=== PATIENT | female | born 1990 | race Caucasian/White ===

== ENCOUNTER 2016-08-03 11:51 | Emergency (ER) | payer BC ==
[2016-08-03 15:20] VITALS: BP 127/67
== END 2016-08-03 16:04 | disposition left against medical advice (07) ==
LOC: ED 11:51
DX: R10.9 Unspecified abdominal pain (principal); Z53.21 Procedure and treatment not carried out due to patient leaving prior to being seen by health care provider
CPT/HCPCS: 99281

== ENCOUNTER 2016-08-03 17:06 | Emergency (ER) | payer BC ==
[2016-08-03 17:43] VITALS: BP 120/79
--- NOTE | 2016-08-03 18:25 | UC ---
Abdominal Pain Female HPI - HPI Summary HPI Summary: Dull periumbilical upper abd discomfort since about 4pm yesterday. Ate a chicken breast sub for lunch yesterday, ate salmon last night, pain did not get better or worse with eating. Ate breakfast at 5am and experienced some nausea s vomiting. Last BM this morning normal/no blood. Denies fever or chills. No radiation of pain. - History of Current Complaint Chief Complaint: UCAbdominalPain Stated Complaint: ABDOMINAL PAIN Time Seen by Provider: 08/03/16 17:46 Hx Obtained From: Patient Hx Last Menstrual Period: 07/26/16 ?: No Onset/Duration: Gradual Onset, Lasting Hours Timing: Constant Severity Initially: Moderate Severity Currently: Mild Location: Epigastric Radiates: No Character: Aching, Dull Aggravating Factor(s): Nothing Alleviating Factor(s): Nothing Associated Signs and Symptoms: Negative: Fever, Cough, Urinary Symptoms, Decreased Appetite, Vaginal Discharge, Vomiting, Diarrhea Allergies/Adverse Reactions: Allergies Allergy/AdvReac Type Severity Reaction Status Date / Time No Known Allergies Allergy Verified 11/14/13 10:39 PMH/Surg Hx/FS Hx/Imm Hx Previously Healthy: Yes Endocrine History Of: Denies: Diabetes, Thyroid Disease Cardiovascular History Of: Denies: Cardiac Disorders, Hypertension Respiratory History Of: Denies: COPD, Asthma GI/ History Of: Denies: Ulcer - Surgical History Surgical History: None - Family History Known Family History: Positive: Diabetes - in grandparents, Other - noncontibutory - Social History Occupation: Employed Full-time Alcohol Use: Rare Substance Use Type: None Smoking Status (MU): Never Smoked Tobacco Review of Systems Constitutional: Negative Skin: Negative Eyes: Negative ENT: Negative Respiratory: Negative Cardiovascular: Negative Gastrointestinal: Abdominal Pain Genitourinary: Negative Motor: Negative Neurovascular: Negative Musculoskeletal: Negative Neurological: Negative Psychological: Negative All Other Systems Reviewed And Are Negative: Yes Physical Exam Triage Information Reviewed: Yes Appearance: Well-Appearing, No Pain Distress, Well-Nourished Vital Signs: Initial Vital Signs Temp 97.6 F 08/03/16 17:40 Pulse 78 08/03/16 17:40 Resp 18 08/03/16 17:40 BP 120/79 08/03/16 17:40 Pulse Ox 100 08/03/16 17:40 Vital Signs Reviewed: Yes Eye Exam: Normal Eyes: Positive: Conjunctiva Clear ENT Exam: Normal ENT: Positive: Normal ENT inspection, Hearing grossly normal, Pharynx normal, TMs normal Dental Exam: Normal Neck exam: Normal Neck: Positive: Supple Respiratory Exam: Normal Respiratory: Positive: Chest non-tender, Lungs clear, Normal breath sounds, No respiratory distress, No accessory muscle use Cardiovascular Exam: Normal Cardiovascular: Positive: RRR, No Murmur Abdomen Description: Positive: Nontender, No Organomegaly, Soft. Negative: CVA Tenderness (R), Distended, Guarding, McBurney's Point Tenderness, Peritoneal Signs, Pulsatile Mass Bowel Sounds: Positive: Present Musculoskeletal Exam: Normal Neurological Exam: Normal Psychological Exam: Normal Skin Exam: Normal Abd Pain Female Course/Dx - Differential Dx/Diagnosis Provider Diagnoses: abdominal pain Discharge - Discharge Plan Condition: Stable Disposition: HOME Prescriptions: Omeprazole CAP* [Prilosec CAP* 20 MG] 20 mg PO BID #6 cap. Patient Education Materials: Abdominal Pain (ED) Referrals: Debbie Rudolph MD [Primary Care Provider] - Additional Instructions: As we discussed, there are no indications of dangerous causes of your abdominal pain. You do not show signs of appendicitis or gall bladder disease, and your vital signs are normal. If you develop worsening pain, if pain becomes concentrated in one spot, if you have prolonged vomiting, or if you see blood in your vomit or stool, please get seen right away in the emergency department. If you continue to have persistent and mild symptoms, please see Dr. Rudolph.
== END 2016-08-03 18:20 | disposition home or self-care (01) ==
LOC: UCEAST 17:06
DX: R10.33 Periumbilical pain (principal); R11.0 Nausea
CPT/HCPCS: 99212; G0463

== ENCOUNTER 2017-04-15 10:41 | Emergency (ER) | payer BC ==
[2017-04-15 11:23] VITALS: BP 107/56
--- NOTE | 2017-04-15 12:27 | UC ---
Respiratory Complaint HPI - HPI Summary HPI Summary: Roommate-who she rarely sees was dx with presumptive whooping cough---she has had no fever or runny nose occasional cough with out post tussive emesis---she is wishing to be checked for whooping cough but does not want treatment as she has no specific sx of such --put is up to date with immunizations - History of Current Complaint Chief Complaint: UCRespiratory Stated Complaint: NEEDS TESTING FOR WHOOPING COUGH Time Seen by Provider: 04/15/17 11:52 Hx Obtained From: Patient Hx Last Menstrual Period: 1 week ago ?: No Onset/Duration: Gradual Onset, Lasting Weeks - 2 Timing: Constant Severity Initially: Mild Severity Currently: Mild Pain Intensity: 0 Character: Cough: Nonproductive Aggravating Factors: Nothing Alleviating Factors: Nothing Associated Signs And Symptoms: Positive: Nasal Congestion - minimal - Allergies/Home Medications Allergies/Adverse Reactions: Allergies Allergy/AdvReac Type Severity Reaction Status Date / Time No Known Allergies Allergy Verified 04/15/17 11:23 Home Medications: Home Medications Norgestimate-Ethinyl Estradiol [Tri Femynor 0.18/0.215/0.25 mg-35 Mcg] 1 tab PO DAILY 04/15/17 [History Confirmed 04/15/17] PMH/Surg Hx/FS Hx/Imm Hx Previously Healthy: Yes - Surgical History Surgical History: None - Family History Known Family History: Positive: Diabetes - in grandparents, Other - noncontibutory - Social History Occupation: Employed Full-time Lives: Dormitory/Roommates Alcohol Use: Rare Substance Use Type: None Smoking Status (MU): Never Smoked Tobacco Review of Systems Constitutional: Negative Skin: Negative Eyes: Negative ENT: Nasal Discharge - miniml Respiratory: Cough - rare tickle Cardiovascular: Negative Gastrointestinal: Negative Genitourinary: Negative Motor: Negative Neurovascular: Negative Musculoskeletal: Negative Neurological: Negative Psychological: Negative Is Patient Immunocompromised?: No All Other Systems Reviewed And Are Negative: Yes Physical Exam Triage Information Reviewed: Yes Appearance: Well-Appearing, No Pain Distress, Well-Nourished Vital Signs: Initial Vital Signs Temp 98.7 F 04/15/17 11:17 Pulse 71 04/15/17 11:17 Resp 18 04/15/17 11:17 BP 107/56 04/15/17 11:17 Pulse Ox 100 04/15/17 11:17 Vital Signs Reviewed: Yes Eye Exam: Normal Eyes: Positive: Conjunctiva Clear ENT Exam: Normal ENT: Positive: Normal ENT inspection, Hearing grossly normal, Pharynx normal, TMs normal. Negative: Nasal congestion, Nasal drainage, Tonsillar swelling, Tonsillar exudate, Trismus, Muffled/hoarse voice Dental Exam: Normal Neck exam: Normal Neck: Positive: Supple, Nontender, No Lymphadenopathy Respiratory Exam: Normal Respiratory: Positive: Chest non-tender, Lungs clear, Normal breath sounds, No respiratory distress, No accessory muscle use Cardiovascular Exam: Normal Cardiovascular: Positive: RRR, No Murmur, Pulses Normal, Brisk Capillary Refill Musculoskeletal Exam: Normal Musculoskeletal: Positive: Strength Intact, ROM Intact, No Edema Neurological Exam: Normal Neurological: Positive: Alert, Muscle Tone Normal Psychological Exam: Normal Psychological: Positive: Normal Response To Family, Age Appropriate Behavior Skin Exam: Normal UC Diagnostic Evaluation - Laboratory O2 Sat by Pulse Oximetry: 100 Respiratory Course/Dx - Course Course Of Treatment: whooping cough nasal swab, increae fluids, follow with pcp prn - Differential Dx/Diagnosis Differential Diagnosis/HQI/PQRI: Asthma, Lower Resp Infection, Sinusitis, Other - whooping cough Provider Diagnoses: URI, possible pertussis exposure Discharge - Discharge Plan Condition: Stable Disposition: HOME Patient Education Materials: Pertussis (ED), Cold Symptoms (ED), Acute Cough ( ED) Referrals: Debbie Rudolph MD [Primary Care Provider] - If Needed
== END 2017-04-15 12:40 | disposition home or self-care (01) ==
LOC: UCEAST 10:41
DX: J06.9 Acute upper respiratory infection, unspecified (principal)
CPT/HCPCS: 87798; 99211; G0463

== ENCOUNTER 2017-10-03 15:03 | Emergency (ER) | payer BC ==
[2017-10-03 17:26] LABS: Hematocrit 43 % (35-47); Hemoglobin 14.3 g/dl (12.0-16.0); Mean Corpuscular HGB Conc 33 g/dl (31-36); Mean Corpuscular Hemoglobin 31 pg (27-31); Mean Corpuscular Volume 94 fL (80-97); Mean Platelet Volume 8.8 um3 (7.4-10.4); Platelet Count 210 10^3/ul (150-450); Red Blood Count 4.61 10^6/ul (4.0-5.4); Red Cell Distribution Width 14 % (10.5-15); White Blood Count 4.4 10^3/ul (3.5-10.8)
[2017-10-03 17:43] LABS: EGFR Non-African American 100.4 (>60)
[2017-10-03 18:34] LABS: ABS Basophils 0 10^3/ul (0-0.2); ABS Eosinophils 0 10^3/ul (0-0.6); ABS Monocytes 0.6 10^3/ul (0-0.8); ABS Neutrophils 1.8 10^3/ul (1.5-7.7); ABS Nucleated RBC 0 10^3/ul; Eosinophil % 0.3 % (0-6); Lymphocyte % 45.1 % (25-47); Nucleated Red Blood Cells % 0.1
--- NOTE | 2017-10-03 18:35 | ED ---
Complex/Multi-Sys Presentation - HPI Summary HPI Summary: Patient here with multiple symptoms started 2 days ago. She is primarily here for a left-sided neck swelling which is expanded since last night however she denies difficulty with breathing or swallowing and this area is not painful. Other symptoms include intermittent headache, sore throat, abdominal cramping without nausea vomiting or diarrhea and feeling run down in general. She denies neck stiffness, chest pain, dental pain/swelling/redness/drainage/ infection, rash, numbness, tingling or weakness. No h/o strep or mono and no recent sick contacts. She believes she is up-to-date with her immunizations. States she is overall healthy person. - History Of Current Complaint Chief Complaint: EDGeneral Time Seen by Provider: 10/03/17 15:51 Hx Obtained From: Patient - Allergies/Home Medications Allergies/Adverse Reactions: Allergies Allergy/AdvReac Type Severity Reaction Status Date / Time No Known Allergies Allergy Verified 10/03/17 15:43 Home Medications: Home Medications Norgestimate-Ethinyl Estradiol [Tri-Sprintec 0.18/0.215/0.25 mg-35 Mcg] 1 tab PO DAILY 10/03/17 [History Confirmed 10/03/17] PMH/Surg Hx/FS Hx/Imm Hx Previously Healthy: Yes Endocrine/Hematology History: Denies: Hx Anticoagulant Therapy, Hx Blood Disorders, Hx Diabetes, Hx Thyroid Disease, Hx Unexplained Bleeding, Autoimmune Disease Cardiovascular History: Denies: Hx Hypertension Respiratory History: Denies: Hx Asthma, Hx Chronic Obstructive Pulmonary Disease (COPD) GI History: Denies: Hx Ulcer - Immunization History Immunizations Up to Date: Yes Infectious Disease History: No Infectious Disease History: Denies: Hx Clostridium Difficile, Hx Hepatitis, Hx Human Immunodeficiency Virus (HIV), Hx of Known/Suspected MRSA, Hx Shingles, Hx Tuberculosis, Hx Known/ Suspected VRE, Hx Known/Suspected VRSA, History Other Infectious Disease, Traveled Outside the [place] in Last 30 Days - Family History Known Family History: Positive: Diabetes - in grandparents - Social History Occupation: Employed Full-time - [employer] Lives: Dormitory/Roommates - female friend Alcohol Use: Rare Hx Substance Use: No Substance Use Type: Reports: None Hx Tobacco Use: No Smoking Status (MU): Never Smoked Tobacco Review of Systems Positive: Chills, Fatigue. Negative: Fever Eyes: Negative Positive: Sore Throat. Negative: Dental Pain, Ear Ache, Nasal Discharge Cardiovascular: Negative Respiratory: Negative - intermittent sneezing Gastrointestinal: Negative Genitourinary: Negative Positive: Arthralgia. Negative: Decreased ROM Skin: Negative Positive: Headache Psychological: Normal All Other Systems Reviewed And Are Negative: Yes Physical Exam Triage Information Reviewed: Yes Vital Signs On Initial Exam: Initial Vitals Temp Pulse Resp BP Pulse Ox 98.1 F 71 17 118/69 100 10/03/17 15:40 10/03/17 15:40 10/03/17 15:40 10/03/17 15:40 10/03/17 15:40 Vital Signs Reviewed: Yes Appearance: Positive: Well-Appearing, No Pain Distress, Well-Nourished Skin: Positive: Warm, Skin Color Reflects Adequate Perfusion, Dry - no rash Head/Face: Positive: Normal Head/Face Inspection - Sinuses NTTP Eyes: Positive: Normal, EOMI ENT: Positive: Normal ENT inspection, Hearing grossly normal, Pharynx normal, TMs normal, Uvula midline. Negative: Nasal congestion, Nasal drainage, Tonsillar swelling, Tonsillar exudate, Trismus, Muffled voice, Hoarse voice, Sinus tenderness Neck: Positive: Other: - single area of enlarged mobile and non-tender mass (~ 1.5cm in diameter) along Lt side of neck, deep in SCM - no overlying erythema, lesions, ecchymosis or crepitus - no fever to touch Respiratory/Lung Sounds: Positive: Clear to Auscultation, Breath Sounds Present. Negative: Rales, Rhonchi, Stridor, Tracheal Deviation, Wheezes Cardiovascular: Positive: Normal, RRR, S1, S2. Negative: Murmur, Rub Abdomen Description: Positive: Nontender, No Organomegaly, Soft Bowel Sounds: Positive: Present Musculoskeletal: Positive: Normal, Strength/ROM Intact Neurological: Positive: Normal, Sensory/Motor Intact, Alert, Oriented to Person Place, Time, CN Intact II-III Psychiatric: Positive: Normal Diagnostics - Vital Signs Vital Signs Temp Pulse Resp BP Pulse Ox 10/03/17 15:40 98.1 F 71 17 118/69 100 - Laboratory Lab Results: Lab Results 10/03/17 10/03/17 10/03/17 Range/Units 17:22 17:22 17:22 WBC 4.4 (3.5-10.8) 10^3/ul RBC 4.61 (4.0-5.4) 10^6/ul Hgb 14.3 (12.0-16.0) g/dl Hct 43 (35-47) % MCV 94 (80-97) fL MCH 31 (27-31) pg MCHC 33 (31-36) g/dl RDW 14 (10.5-15) % Plt Count 210 (150-450) 10^3/ul MPV 8.8 (7.4-10.4) um3 Neut % (Auto) Pending Lymph % (Auto) Pending Swift % (Auto) Pending Eos % (Auto) Pending Baso % (Auto) Pending Absolute Neuts (auto) Pending Absolute Lymphs (auto) Pending Absolute Monos (auto) Pending Absolute Eos (auto) Pending Absolute Basos (auto) Pending Absolute Nucleated RBC Pending Nucleated RBC % Pending Sodium 137 (133-145) mmol/L Potassium 4.8 (3.5-5.0) mmol/L Chloride 103 (101-111) mmol/L Carbon Dioxide 29 (22-32) mmol/L Anion Gap 5 (2-11) mmol/L BUN 9 (6-24) mg/dL Creatinine 0.70 (0.51-0.95) mg/dL Est GFR ( Amer) 129.1 (>60) Est GFR (Non-Af Amer) 100.4 (>60) BUN/Creatinine Ratio 12.9 (8-20) Glucose 106 H (70-100) mg/dL Lactic Acid 1.1 (0.5-2.0) mmol/L Calcium 9.1 (8.6-10.3) mg/dL Total Bilirubin 0.30 (0.2-1.0) mg/dL AST 26 (13-39) U/L ALT 38 (7-52) U/L Alkaline Phosphatase 41 (34-104) U/L C-Reactive Protein 3.84 (< 5.00) mg/L Total Protein 7.1 (6.4-8.9) g/dL Albumin 4.1 (3.2-5.2) g/dL Globulin 3.0 (2-4) g/dL Albumin/Globulin Ratio 1.4 (1-3) Beta HCG, Quant < 0.60 mIU/mL Monoscreen Positive A (Negative) Result Diagrams: 10/03/17 17:22 10/03/17 17:22 Lab Statement: Any lab studies that have been ordered have been reviewed, and results considered in the medical decision making process. Complex Multi-Symp Course/Dx Course Of Treatment: Pt's labs reveal mono. This correlates with her sx. Advised close f/u w/ PCP this week to ensure quick intervention if mass does continue to expand - may require further invstigation (ie. imaging, steroids, etc). If danger s/sx present, return to ED. Pt agrees w/ plan. - Diagnoses Provider Diagnoses: Mononucleosis, Unilateral mass of neck Discharge - Sign-Out/Discharge Documenting (check all that apply): Discharge - Discharge Plan Condition: Stable Disposition: HOME Patient Education Materials: Mononucleosis (ED) Forms: *Work Release Referrals: Debbie Rudolph MD [Primary Care Provider] - Additional Instructions: Rest, stay hydrated, and take ibuprofen alternating with acetaminophen for pain , swelling, fever. Follow-up with PCP in 2 days - call tomorrow to schedule appointment for recheck of Left side neck swelling - if worse, you may benefit from imaging, steroids. *If you have difficulty breathing or swallowing, return to the emergency department - Billing Disposition and Condition Condition: STABLE Disposition: HOME
[2017-10-03 18:58] VITALS: BP 122/77
== END 2017-10-03 18:58 | disposition home or self-care (01) ==
LOC: ED 15:03
DX: B27.90 Infectious mononucleosis, unspecified without complication (principal); R22.1 Localized swelling, mass and lump, neck; R53.83 Other fatigue; J02.9 Acute pharyngitis, unspecified; R51 Headache; Z32.02 Encounter for pregnancy test, result negative
CPT/HCPCS: 36415; 80053; 83605; 84702; 85025; 86140; 86308; 99282